=== PATIENT | female | born 1990 | race Two or more races ===

== ENCOUNTER 2019-03-11 20:09 | Emergency (ER) | payer SELFPAY ==
[~2019-03-11] VITALS: Ht 162.6 cm; Wt 75.9 kg
[2019-03-11] MEDS ORDERED: HYDROcodone/APAP 5/325 TABLET PO ONE (20:30)
[2019-03-11] MEDS ORDERED: HYDROcodone/APAP 5/325 TABLET ONE (20:49)
[2019-03-11 21:21] VITALS: BP 107/69
== END 2019-03-11 21:24 | disposition home or self-care (01) ==
LOC: ED 20:43
DX: H60.501 Unspecified acute noninfective otitis externa, right ear (principal); R42 Dizziness and giddiness; J45.909 Unspecified asthma, uncomplicated
CPT/HCPCS: 99283